=== PATIENT | male | born 2000 | race Caucasian/White ===

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

== ENCOUNTER 2022-03-08 13:12 | Emergency (ER) | payer SELFPAY ==
[2022-03-08 15:23] VITALS: BP 162/78; PULSE 84; RESP 16; TEMP 38.7; O2SAT 98; BMI 21.7
[2022-03-08 15:27] LABS: UTC Influenza A Antigen Positive (Negative); UTC Influenza B Antigen Negative (Negative)
--- NOTE | 2022-03-08 15:49 | EXP.UTC ---
Discharge Plan Disposition Patient Disposition: Home, Self-Care Condition: Good Prescriptions Prescriptions: No Action famotidine 20 mg tablet 20 mg PO QHS Qty: 90 2RF Referrals Follow up/Referrals: Provider,Referral, MD [Primary Care Provider] - See instructions Clinical Impressions Clinical Impression: Influenza A Stand Alone Forms Stand Alone Forms: Work/School Release Instructions Patient Instructions: DI for Influenza -- Adult, Influenza (Alternative Therapy) Discharge ED Provider: Marycruz Salinas [facility] General Stated complaint: Fever,Bodyaches,Chills,Congestion Mode of Arrival: Ambulatory Source of Information: Patient Limitations: No Limitations Time Seen by Provider: 03/08/22 15:49 Description of Symptoms (Recalled from Triage Doc. by RN): pt comes in with c/o fever, body aches, chills, congestion, headache. symptoms began yesterday HEENT Symptoms (Recalled from RN notes): Yes Resp Symptoms (Recalled from RN notes): Yes Skin Symptoms (Recalled from RN notes): No MS Symptoms (Recalled from RN notes): No Functional Status (Recalled from RN notes): n/a History of Present Illness Provider Complaint: Pt states that he has been sick since yesterday with fever, cough, headache, chills, body aches, and sinus congestion. He states that he feels like he has either flu or Covid. Related Data Previous Rx's Medication Instructions Recorded famotidine 20 mg tablet 20 mg PO QHS #90 tabs 11/08/19 Allergies Allergy/AdvReac Type Severity Reaction Status Date / Time No Known Allergies Allergy Verified 03/08/22 15:26 Worker's Comp Is this a Worker's Comp case?: No [facility] Disclaimer: The information contained in this section may have been updated after the patient was seen, as this information can be updated by other users. Social History Smoking Status: Never smoker alcohol intake: never substance use type: denies use current occupational status: employed Travel in the last 8 weeks: None ROS Obtained: Yes All systems reviewed & no additional complaints except as documented Constitutional Constitutional: Reports body ache, Reports chills, Reports fatigue, Reports fever(s), Reports headache(s) and Reports malaise Eyes Eyes: Reports system reviewed and no additional complaints, except as documented ENT Ears, Nose, Mouth, and Throat: Reports headache(s), Reports nasal congestion, Reports nasal discharge and Reports post nasal drip Cardiovascular Cardiovascular: Reports system reviewed and no additional complaints, except as documented Respiratory Respiratory: Reports cough Gastrointestinal Gastrointestingal: Reports system reviewed and no additional complaints, except as documented Genitourinary Male Genitourinary: Reports system reviewed and no additional complaints, except as documented Musculoskeletal Musculoskeletal: Reports system reviewed and no additional complaints, except as documented Integumentary/Breasts Skin/Breast: Reports system reviewed and no additional complaints, except as documented Neurologic Neurologic: Reports system reviewed and no additional complaints, except as documented and Reports headache(s) Endocrine Endocrine: Reports fatigue Hematologic/Lymphatic Henatologic/Lymphatic: Reports system reviewed and no additional complaints, except as documented Allergic/Immunologic Allergic/Immunologic: Reports system reviewed and no additional complaints, except as documented Physical Exam General General appearance: alert Comment: appears ill Head Head exam: atraumatic and normocephalic Eye Eye exam: Present normal appearance ENT ENT exam: Present mucous membranes moist Expanded ENT Exam External ear exam: Present normal external inspection Nasal speculum exam: Bilateral: other (clear drainge) Mouth exam: Present normal external inspection Teeth exam: Present normal inspection Throat exam: Present other Comment: pharyngeal erythema Neck Neck exam
[2022-03-08 16:10] VITALS: BP 162/78; PULSE 84; RESP 16; TEMP 38.7
== END 2022-03-08 16:11 | disposition home or self-care (01) ==
PROVIDERS: Emergency Provider Nurse Practitioner Family
DX: J10.1 Influenza due to other identified influenza virus with other respiratory manifestations (principal)
CPT/HCPCS: 87804; 99212; G0463

== ENCOUNTER 2023-12-07 10:05 | Emergency (ER) | payer SELFPAY ==
[2023-12-07 10:06] VITALS: BP 121/68; PULSE 68; RESP 16; TEMP 37; O2SAT 97; BMI 20.9
[2023-12-07 10:47] VITALS: BP 121/68; PULSE 68; RESP 17; TEMP 37; O2SAT 97
--- NOTE | 2023-12-07 16:26 | HMH.EDGENADL ---
Discharge Plan Disposition Patient Disposition: Home, Self-Care Condition: Good Prescriptions Prescriptions: New fluticasone propionate [Flonase Allergy Relief] 50 mcg/actuation spray,suspension 1 spray intranasal BID Qty: 16 0RF Rx Instructions: administer into each nostril cetirizine [Zyrtec] 10 mg tablet 10 mg PO DAILY Qty: 30 0RF inizjflphluzayx-vuxttolhx-LM [Bromfed DM] 2-30-10 mg/5 mL syrup 5 ml PO Q6H PRN (Reason: cold symptoms) Qty: 118 0RF No Action famotidine 20 mg tablet 20 mg PO QHS Qty: 90 2RF Referrals Follow up/Referrals: Provider,Referral, MD [Primary Care Provider] - See instructions Activity Restrictions/Add. Instructions Additional Instructions/Restrictions: You were evaluated in the emergency department today. Please cook pickled meat your medications at the pharmacy and take them as needed for symptoms. You may also take Tylenol and ibuprofen every 4-6 hours as needed for pain, headache, or fever. Follow-up closely with your primary care provider. Expect that symptoms usually start to get better after about a week, but cough may linger for up to 6 weeks. Return to the emergency department for new or worsening symptoms. Clinical Impressions Clinical Impression: Upper respiratory infection, viral Stand Alone Forms Stand Alone Forms: Work/School Release Instructions Patient Instructions: DI for Viral Upper Respiratory Infection -- Adult Print Language Print Language: Hebrew Discharge ED Provider: Paradise Perez General Adult HPI General Chief complaint: Upper Respiratory Infection Stated complaint: cough, drainage Time Seen by Provider: 12/07/23 10:08 Mode of Arrival: Ambulatory Source of Information: Patient Limitations: No Limitations Description of Symptoms (Recalled from ER Triage Doc. by RN): Patient reports sinus headache, body aches, chills and fever since . History of Present Illness HPI narrative: This patient is a 23-year-old male who denies significant past medical history presenting to the emergency department with concerns that he could have COVID. He notes that his COVID test at home was negative, but he has had fevers, headache, sinus pressure, drainage, body aches, and chills since . No other concerns noted. He tried Mucinex at home with minimal improvement. He states he is ultimately getting a lot better but he was concerned because the drainage is persistent and worse at night. Related Data Previous Rx's ?Medication ?Instructions ?Recorded famotidine 20 mg tablet 20 mg PO QHS #90 tabs 11/08/19 mzkxpebkimpkozu-[id number]-[id number] 5 ml PO Q6H PRN cold symptoms #118 12/07/23 2 mg-30 mg-10 mg/5 mL oral syrup mL (Bromfed DM) cetirizine 10 mg tablet (Zyrtec) 10 mg PO DAILY #30 tabs 12/07/23 fluticasone propionate 50 1 spray intranasal BID #16 grams 12/07/23 mcg/actuation nasal spray,suspension (Flonase Allergy Relief) Allergies Allergy/AdvReac Type Severity Reaction Status Date / Time No Known Allergies Allergy Verified 03/08/22 15:26 [facility] Disclaimer: The information contained in this section may have been updated after the patient was seen, as this information can be updated by other users. Social History Smoking Status: Current some day smoker alcohol intake: never substance use type: denies use current occupational status: employed Travel in the last 8 weeks: None ROS Obtained: Yes All systems reviewed & no additional complaints except as documented Physical Exam General General appearance: alert and in no apparent distress Head Head exam: atraumatic and normocephalic Eye Eye exam: Present normal appearance, PERRL and EOMI ENT ENT exam: Present normal exam, normal oropharynx, mucous membranes moist and normal external ear exam Neck Neck exam: Present normal inspection, full ROM and trachea midline; Absent tenderness Chest Chest inspection: Present normal inspection and symmetric chest wall rise; Absent tenderness Respiratory Respiratory exam: Present normal lung sounds bilaterally; Absent respiratory distress, wheezes, stridor or accessory muscle use Cardiovascular Cardiovascular exam: Present regular rate and normal rhythm Abdominal Exam Abdominal exam: Present soft; Absent distention, tenderness or guarding Extremities Exam Extremities exam: Present normal inspection, full ROM and normal capillary refill; Absent tenderness or edema Back Exam Back exam: Present normal inspection and full ROM; Absent tenderness Neurological Exam Neurological exam: Present alert, oriented X3, CN II-XII intact and normal gait; Absent motor sensory deficit Psychiatric Psychiatric exam: Present normal affect and normal mood Skin Skin exam: Present warm and dry Medical Decision Making Medical Records Medical records reviewed: Yes I reviewed the patient's medical records. Juve Inquiry Pt receiving controlled substance: No Vital Signs: 12/07/23 10:06 12/07/23 10:47 Temperature 98.6 F 98.6 F Temperature Source Oral Pulse Rate 68 Pulse Rate [Radial] 68 Respiratory Rate 16 17 Blood Pressure 121/68 Blood Pressure [Right Arm] 121/68 Blood Pressure Mean [Right Arm] 85 Blood Pressure Source [Right Arm] Automatic Cuff Blood Pressure Position [Right Arm] Sitting 02 Sat by Pulse Oximetry 97 Oxygen Delivery Method Room Air Room Air Lab Data Lab results reviewed: Yes I reviewed the patient's lab results. Medical Decision Narrative: In summary, this patient is a 23-year-old male presenting to the Emergency Department for evaluation of fever, sinus congestion, nasal drainage. Differential diagnoses considered include but are not limited to viral syndrome, sinusitis, otitis, pneumonia. Ruling out the most morbid conditions drove assessment. On exam, the patient is very well-appearing. He does not have focal finding suggestive of acute bacterial infection on clinical exam. Vitals are normal on cardiac telemetry. COVID/flu swab was sent at the patient's request, but ultimately I do not feel that other labs or imaging are indicated at this time. I feel he is appropriate for discharge home with close follow-up with his primary care provider and instructions for supportive management. He was given prescriptions for Bromfed, Flonase, and Zyrtec and instructions for supportive management. He was discharged after all questions were answered we reassured return precautions Critical Care Critical Care Time Critical Care Time: No
== END 2023-12-07 10:49 | disposition home or self-care (01) ==
PROVIDERS: Emergency Provider Emergency Medicine
DX: R05.9 Cough, unspecified (principal); J06.9 Acute upper respiratory infection, unspecified; B34.9 Viral infection, unspecified; R50.9 Fever, unspecified
CPT/HCPCS: 99283